=== PATIENT | female | born 1975 | race Caucasian/White ===

== ENCOUNTER 2016-06-17 18:44 | Emergency (ER) | payer BC, OTHER ==
[~2016-06-17] VITALS: Ht 167.6 cm; Wt 97.9 kg
[~2016-06-17 18:44] MED LIST: AMITRIPTYLINE H25 MG PO; BENTYL20 MG PO; CARAFATE100 MG/ML PO; COLACE100 MG PO; COQ1050 MG PO; DURAGESIC50 MCG TD; ELAVIL50 MG PO; GLIPIZIDE10 MG PO; GLYBURIDE5 MG PO; HYOSCYAMINE0.125 MG SL; LOVASTATIN10 MG PO; LOVASTATIN40 MG PO; METFORMIN HCL500 MG PO; MIRALAX255 GM PO; MIRTAZAPINE15 MG PO; MOTRIN600 MG PO; MULTIPLE VITAM1 EACH PO; NAPROSYN125 MG/5 M PO; NORCO 5/3251 TABLET PO; NORCO 7.5/321 TABLET PO; OMEPRAZOLE40 M1 PO; ONDANSETRON ODT8 MG PO; PERCOCET 5/31 TABLET PO; PHENERGAN25 MG PR; PRENATAL TABLE1 EAC3 PO; PROBIOTIC1 EAC2 PO; PROTONIX40 MG PO; RANITIDINE15 MG/1 ML PO; ULTRAM50 MG PO; VITAMIN B125000 MCG PO; ZANTAC15 MG/ML PO; ZANTAC300 MG PO; ZOFRAN ODT8 MG PO; ZOFRAN4 MG PO; ZOFRAN8 MG PO
[2016-06-17] MEDS ORDERED: DIABETA5 MG PO (19:58)
[2016-06-17] MEDS ORDERED: NOVOLIN N100 UNITS/ SC (20:00)
[2016-06-17 21:16] VITALS: BP 126/84
== END 2016-06-17 21:18 | disposition home or self-care (01) ==
LOC: EXP 18:44 → EME 18:44 → EXP 21:18
DX: M79.605 Pain in left leg (principal); M79.89 Other specified soft tissue disorders; E11.9 Type 2 diabetes mellitus without complications; Z79.4 Long term (current) use of insulin
CPT/HCPCS: 93971; 99281; 99283

== ENCOUNTER 2016-08-06 02:25 | Emergency (ER) | payer BC, OTHER ==
[~2016-08-06] VITALS: Ht 167.6 cm; Wt 99.9 kg
[~2016-08-06 02:25] MED LIST changes: +DIABETA5 MG PO; +NOVOLIN N100 UNITS/ SC
[2016-08-06 02:58] LABS: EOSINOPHIL (%) 1.1 % (0-5); EOSINOPHIL COUNT 0.1 K/uL (0-0.3); HEMATOCRIT 40.3 % (36.0-46.0); IMMATURE GRANULOCYTE (%) 0.4 % (0.0-0.7); INSTRUMENT ABS NEUTROPHIL CT 4.9 K/uL; LYMPHOCYTE COUNT 2.8 K/uL (1.0-2.8); MCH 29.8 PG (29.0-34.0); MCHC 33.7 G/DL (30.0-36.0); MCV 88.2 FL (83-99); MEAN PLAT.VOLUME 10.5 uM^3 (9.5-12.4); MONOCYTE (%) 7.8 % (3-12); MONOCYTE COUNT 0.7 K/uL (0-0.8); NEUTROPHIL (%) 57.6 % (45-76); NEUTROPHIL COUNT 4.9 K/uL (1.8-6.4); PLATELET COUNT 221 K/uL (156-360); RBC DIS.WIDTH-CV 12.6 % (11.8-14.6); RBC DIS.WIDTH-SD 40.4 % (39-53); RED BLOOD COUNT 4.57 M/uL (3.80-5.20); WHITE BLOOD COUNT 8.4 K/uL (4.1-10.2)
[2016-08-06 03:14] LABS: CHLORIDE 107 mEq/L (99-109); POTASSIUM 3.9 mEq/L (3.7-5.4); SODIUM 138 mEq/L (136-147)
[2016-08-06 03:15] LABS: GLUCOSE 165 mg/dL (70-99)
[2016-08-06 03:17] LABS: ANION GAP 8 MEQ/L (2-14)
[2016-08-06 03:19] LABS: GFR ESTIMATE (CALCULATED) > 59 mL/min/
[2016-08-06 03:20] LABS: UREA NITROGEN (BUN) 15 mg/dL (9-23)
[2016-08-06] MEDS ORDERED: ERYTHROMYC1 APPLICAT RIGHT EYE (04:05)
[2016-08-06] MEDS ORDERED: CLINDAMYCI75 MG/5 ML PO (04:07)
[2016-08-06 04:18] VITALS: BP 124/82
[2016-08-07] MEDS ORDERED: EXPECTORAN100 MG/52 PO (10:24)
[2016-08-07] MEDS ORDERED: AUGMENTIN80 MG/ML PO (10:24)
== END 2016-08-06 04:19 | disposition home or self-care (01) ==
LOC: EME 02:25
PROVIDERS: Emergency Medicine
DX: L03.213 Periorbital cellulitis (principal); H57.11 Ocular pain, right eye; E11.9 Type 2 diabetes mellitus without complications; Z79.4 Long term (current) use of insulin
CPT/HCPCS: 70480; 80048; 83605; 85025; 99281; 99283

== ENCOUNTER 2016-08-07 08:26 | Emergency (ER) | payer BC, OTHER ==
[~2016-08-07] VITALS: Ht 167.6 cm; Wt 99.6 kg
[~2016-08-07 08:26] MED LIST changes: +CLINDAMYCI75 MG/5 ML PO; +ERYTHROMYC1 APPLICAT RIGHT EYE
[2016-08-07] MEDS ORDERED: AUGMENTIN80 MG/ML PO (10:24)
[2016-08-07] MEDS ORDERED: EXPECTORAN100 MG/52 PO (10:24)
[2016-08-07 11:12] VITALS: BP 122/89
== END 2016-08-07 11:14 | disposition home or self-care (01) ==
LOC: EME 08:26
DX: J32.9 Chronic sinusitis, unspecified (principal); H10.9 Unspecified conjunctivitis; H05.221 Edema of right orbit; E11.9 Type 2 diabetes mellitus without complications; Z79.4 Long term (current) use of insulin
CPT/HCPCS: 87651 90; 99281; 99283

== ENCOUNTER 2016-09-22 00:22 | Emergency (ER) | payer BC, OTHER ==
[~2016-09-22] VITALS: Ht 167.6 cm; Wt 98.5 kg
[~2016-09-22 00:22] MED LIST changes: +AUGMENTIN80 MG/ML PO; +EXPECTORAN100 MG/52 PO
[2016-09-22 01:09] LABS: HEMATOCRIT 44.5 % (36.0-46.0); MCH 29.6 PG (29.0-34.0); MCHC 32.8 G/DL (30.0-36.0); MCV 90.3 FL (83-99); MEAN PLAT.VOLUME 10.6 uM^3 (9.5-12.4); PLATELET COUNT 271 K/uL (156-360); RBC DIS.WIDTH-CV 12.6 % (11.8-14.6); RBC DIS.WIDTH-SD 42.1 % (39-53); RED BLOOD COUNT 4.93 M/uL (3.80-5.20); WHITE BLOOD COUNT 8.6 K/uL (4.1-10.2)
[2016-09-22 01:20] LABS: CHLORIDE 105 mEq/L (99-109); POTASSIUM 3.9 mEq/L (3.7-5.4); SODIUM 139 mEq/L (136-147)
[2016-09-22 01:22] LABS: GLUCOSE 206 mg/dL (70-99)
[2016-09-22 01:23] LABS: ANION GAP 9 MEQ/L (2-14)
[2016-09-22 01:25] LABS: GFR ESTIMATE (CALCULATED) > 59 mL/min/
[2016-09-22 01:26] LABS: UREA NITROGEN (BUN) 15 mg/dL (9-23)
[2016-09-22 01:33] LABS: QUANTITATIVE HCG < 4.0 MIU/ML
[2016-09-22 01:35] LABS: PTT 23.6 (25-32)
[2016-09-22] MEDS ORDERED: PROMETHAZINE HC25 M1 PO (04:38)
[2016-09-22] MEDS ORDERED: PHENERGAN25 MG PR (04:38)
[2016-09-22 05:04] VITALS: BP 135/83
== END 2016-09-22 05:06 | disposition home or self-care (01) ==
LOC: EME 00:22
PROVIDERS: Personal Emergency Response Attendant
DX: R11.10 Vomiting, unspecified (principal); K62.5 Hemorrhage of anus and rectum; E11.9 Type 2 diabetes mellitus without complications; E78.5 Hyperlipidemia, unspecified; Z85.038 Personal history of other malignant neoplasm of large intestine; Z90.49 Acquired absence of other specified parts of digestive tract
CPT/HCPCS: 74177; 80048; 84702; 85027; 85610; 85730; 86900; 86901; 99281; 99285; J0780; J2405; J2550; J3010; J7030

== ENCOUNTER 2016-11-12 19:15 | Emergency (ER) | payer BC, OTHER ==
[~2016-11-12] VITALS: Ht 167.6 cm; Wt 102.6 kg
[~2016-11-12 19:15] MED LIST changes: +PROMETHAZINE HC25 M1 PO
[2016-11-12] MEDS ORDERED: FLEXERIL10 MG PO (21:17)
[2016-11-12] MEDS ORDERED: NAPROXEN500 MG PO (21:17)
[2016-11-12] MEDS ORDERED: LIDODERM 5% P1 PATCH TD (21:17)
[2016-11-12 21:54] VITALS: BP 122/81
== END 2016-11-12 21:58 | disposition home or self-care (01) ==
LOC: EME 19:15
DX: S39.012A Strain of muscle, fascia and tendon of lower back, initial encounter (principal); W01.0XXA Fall on same level from slipping, tripping and stumbling without subsequent striking against object, initial encounter; Y92.015 Private garage of single-family (private) house as the place of occurrence of the external cause; Z85.038 Personal history of other malignant neoplasm of large intestine; E11.9 Type 2 diabetes mellitus without complications; Z79.4 Long term (current) use of insulin; Z88.6 Allergy status to analgesic agent
CPT/HCPCS: 72100; 99281; 99283; J1885

== ENCOUNTER 2016-11-27 11:42 | Emergency (ER) | payer BC, OTHER ==
[~2016-11-27] VITALS: Ht 167.6 cm; Wt 101.6 kg
[~2016-11-27 11:42] MED LIST changes: +FLEXERIL10 MG PO; +LIDODERM 5% P1 PATCH TD; +NAPROXEN500 MG PO
[2016-11-27 13:34] LABS: HEMATOCRIT 45.1 % (36.0-46.0); MCH 29.5 PG (29.0-34.0); MCV 89.3 FL (83-99); MEAN PLAT.VOLUME 11.6 uM^3 (9.5-12.4); PLATELET COUNT 175 K/uL (156-360); RBC DIS.WIDTH-CV 12.6 % (11.8-14.6); RBC DIS.WIDTH-SD 40.6 % (39-53); RED BLOOD COUNT 5.05 M/uL (3.80-5.20); WHITE BLOOD COUNT 12.1 K/uL (4.1-10.2)
[2016-11-27 15:46] LABS: CHLORIDE 105 mEq/L (99-109); POTASSIUM 4.4 mEq/L (3.7-5.4); SODIUM 137 mEq/L (136-147)
[2016-11-27 15:47] LABS: GLUCOSE 168 mg/dL (70-99)
[2016-11-27 15:49] LABS: ANION GAP 9 MEQ/L (2-14)
[2016-11-27 15:51] LABS: GFR ESTIMATE (CALCULATED) > 59 mL/min/
[2016-11-27 15:52] LABS: TROP-I INTERPRETATION NEGATIVE; TROPONIN-I < 0.01 ng/mL (0.0-0.30); UREA NITROGEN (BUN) 11 mg/dL (9-23)
[2016-11-27 17:59] LABS: TROP-I INTERPRETATION NEGATIVE; TROPONIN-I < 0.01 ng/mL (0.0-0.30)
[2016-11-27 18:40] LABS: D-DIMER ELISA 0.26 mg/L FEU (< 0.57)
[2016-11-27] MEDS ORDERED: TESSALON PERLE100 MG PO (18:51)
[2016-11-27] MEDS ORDERED: VENTOLIN HFA18 GM IH (18:51)
[2016-11-27] MEDS ORDERED: FLONASE16 G1 BOTH NARES (18:52)
[2016-11-27 19:11] VITALS: BP 136/74
== END 2016-11-27 19:12 | disposition home or self-care (01) ==
LOC: EME 11:42
PROVIDERS: Physician Assistant Medical
DX: J06.9 Acute upper respiratory infection, unspecified (principal); R06.02 Shortness of breath; E11.9 Type 2 diabetes mellitus without complications; I10 Essential (primary) hypertension; Z79.4 Long term (current) use of insulin
CPT/HCPCS: 71020; 80048; 84484; 85027; 85379; 93005; 99281; 99285; J1100